=== PATIENT | female | born 1965 | race Caucasian/White ===

== ENCOUNTER 2019-07-22 04:20 | Emergency (ER) | payer OTHER, SELFPAY ==
[~2019-07-22 04:20] MED LIST: ASPI-555 PO; AZEL50GE2 TP; CALC1TAB3 PO; DOXY100C2 PO; GLIP10TA9 PO; LEVO75TA4 PO; LISI2.5T2 PO; MESA0.37 PO; MILK1CAP3 PO; VIT1TABL66 PO
[2019-07-22 05:42] LABS: BASOPHILS % (AUTO) 0.7 % (0.0-5.0); EOSINOPHILS % (AUTO) 3.5 % (0.0-8.0); HEMATOCRIT 36.8 % (36-48); MEAN CORPUSCULAR HEMOGLOBIN 26.6 pg (27.0-33.0); MEAN CORPUSCULAR HGB CONC 31.3 g/dL (32.0-36.0); MEAN CORPUSCULAR VOLUME 85.2 fL (79-99); MONOCYTES % (AUTO) 7.8 % (3.0-13.0); NEUTROPHILS % (AUTO) 58.7 % (40.0-77.0); PLATELET COUNT (AUTO) 258 K/uL (130-400); RED BLOOD CELL COUNT(AUTO) 4.32 MIL/uL (4.00-5.50); RED CELL DISTRIBUTION WIDTH 13.5 % (11.0-15.5); WHITE BLOOD COUNT (AUTO) 7.7 K/uL (4.8-10.8)
[2019-07-22 05:52] LABS: CREATININE 0.8 mg/dL (0.5-1.5); MAGNESIUM 1.7 mg/dL (1.80-2.40); POTASSIUM 3.3 mmol/L (3.5-5.1)
== END 2019-07-22 08:32 | disposition home or self-care (01) ==
LOC: EDH 04:20
DX: R00.2 Palpitations (principal); E11.9 Type 2 diabetes mellitus without complications; Z88.6 Allergy status to analgesic agent
CPT/HCPCS: 36415; 80048; 83735; 84484; 85025; 93005